=== PATIENT | male | born 1960 | race Caucasian/White ===

== ENCOUNTER → 2024-09-03 | Outpatient (CLI) | payer OTHER ==
[~2024-09-03] MED LIST: HYDR-3363; LEVO100T5
== END ==
LOC: M RAD 06:29
PROVIDERS: ATTEND Internal Medicine Medical Oncology
DX: F17.210 Nicotine dependence, cigarettes, uncomplicated (principal); I25.10 Atherosclerotic heart disease of native coronary artery without angina pectoris; I25.84 Coronary atherosclerosis due to calcified coronary lesion

== ENCOUNTER → 2025-05-19 | Outpatient (CLI) | payer OTHER ==
[2025-05-19 18:09] LABS: CHOLESTEROL LEVEL 176.0 MG/DL (<200); CHOLESTEROL RISK RATIO 2.13 (<5); LDL CHOLESTEROL 72.8 MG/DL (<100); NON-HDL-C 93.6 MG/DL; TRIGLYCERIDES LEVEL 104.0 MG/DL (<150)
[2025-05-19 18:11] LABS: FREE T4 1.21 NG/DL (0.89-1.76)
[2025-05-19 18:35] LABS: ESTIMATED AVERAGE GLUCOSE 108.0 MG/DL (60-110)
== END ==
LOC: M WUC 14:10
PROVIDERS: ATTEND Physician Assistant
DX: E03.9 Hypothyroidism, unspecified (principal)